=== PATIENT | male | born 1950 | race Two or more races ===

== ENCOUNTER 2018-03-12 11:56 | Outpatient (CLI) | payer OTHER | END 2018-03-12 17:00 | disposition home or self-care (01) | LOC: RAD 11:56 | DX: M17.12 Unilateral primary osteoarthritis, left knee (principal); Z96.651 Presence of right artificial knee joint ==

== ENCOUNTER 2018-06-04 11:26 | Outpatient (CLI) | payer OTHER | END 2018-06-04 11:35 | disposition home or self-care (01) | LOC: RAD 11:26 | DX: Z01.818 Encounter for other preprocedural examination (principal) ==

== ENCOUNTER 2018-06-09 10:52 | Outpatient (CLI) | payer OTHER | END 2018-06-09 11:02 | disposition home or self-care (01) | LOC: RAD 10:52 | DX: Z96.651 Presence of right artificial knee joint (principal); I11.9 Hypertensive heart disease without heart failure ==

== ENCOUNTER 2018-08-20 11:11 | Outpatient (CLI) | payer OTHER | END 2018-08-20 11:21 | disposition home or self-care (01) | LOC: RAD 11:11 | DX: M16.0 Bilateral primary osteoarthritis of hip (principal); M17.0 Bilateral primary osteoarthritis of knee ==

== ENCOUNTER 2019-01-02 08:44 | Outpatient (CLI) | payer OTHER | END 2019-01-02 08:45 | disposition home or self-care (01) | LOC: SONOGRAMA 08:44 → MAMO-SONO 08:45 | DX: R10.11 Right upper quadrant pain (principal); K76.0 Fatty (change of) liver, not elsewhere classified; K52.89 Other specified noninfective gastroenteritis and colitis ==